=== PATIENT | female | born 1970 | race American Indian/Alaskan Native ===

== ENCOUNTER 2019-10-01 23:54 | Emergency (ER) | payer SELFPAY ==
[2019-10-02] MEDS ORDERED: ASPIRIN 325 MG TAB PO ONE (00:09)
[2019-10-02 00:45] LABS: Basophils # (Auto) 0.1 K/mm3 (0.0-0.1); Basophils % (Auto) 0.9 % (0.0-1.8); Eosinophils # (Auto) 0.1 K/mm3 (0.0-0.4); Eosinophils % (Auto) 1.5 % (0.0-4.3); Hematocrit 43.1 % (30.3-42.9); Hemoglobin 14.7 gm/dl (10.1-14.3); Lymphocytes # (Auto) 2.5 K/mm3 (1.2-5.4); Lymphocytes % (Auto) 39.7 % (13.4-35.0); Mean Corpuscular HGB Conc 34 % (30-34); Mean Corpuscular Volume 91 fl (79-97); Monocytes # (Auto) 0.4 K/mm3 (0.0-0.8); Monocytes % (Auto) 6.9 % (0.0-7.3); Platelet Count 379 K/mm3 (140-440); Red Blood Count 4.73 M/mm3 (3.65-5.03); Red Cell Distribution Width 15.7 % (13.2-15.2)
[2019-10-02 01:00] LABS: BUN/Creatinine Ratio 14; Blood Urea Nitrogen 14 mg/dL (7-17); Hemolysis Index 9
--- NOTE | 2019-10-02 01:36 | XRay Report ---
CHEST 2 VIEWS INDICATION / CLINICAL INFORMATION: Chest Pain. COMPARISON: None available. FINDINGS: SUPPORT DEVICES: None. HEART / MEDIASTINUM: The heart size and pulmonary vasculature are normal. The aorta is normal in claudia lucian. LUNGS / PLEURA: No significant pulmonary or pleural abnormality. No pneumothorax. ADDITIONAL FINDINGS: No significant additional findings. IMPRESSION: No acute findings. Signer Name: Ton Powell MD Signed: 10/02/2019 1:32 AM Workstation Name: [id number]
[2019-10-02] MEDS ORDERED: SODIUM CHLORIDE 0.9% 1000 ML 1,000 ML IV ONE (02:30)
--- NOTE | 2019-10-02 02:30 | Emergency Department Report ---
ED Abdominal Pain HPI - General Chief Complaint: Nausea/Vomiting/Diarrhea Stated Complaint: WEAK LEGS,NAUSEA,VOMITING,CHEST PAIN Time Seen by Provider: 10/02/19 02:20 Source: patient Mode of arrival: Wheelchair Limitations: No Limitations - History of Present Illness Initial Comments: 49-year-old female with history of gastric ulcers presents to ED with 3-week history abdominal pain, nausea and vomiting. Patient has been seen in the ED twice over the last 2 weeks for same. Patient states she cannot seem to keep her symptoms under control. States she cannot keep anything down. Patient states she is here visiting her daughter from out of town and will be returning home this week. Patient states she has not had an abdominal flareup in approxim ately 6 months. Patient does report marijuana use approximately 3-4 times per week. MD Complaint: abdominal pain -: week(s) (3) Location: diffuse Radiation: epigastric Migration to: no migration Severity: moderate Quality: aching Consistency: intermittent Improves With: nothing Worsens With: eating Associated Symptoms: nausea, vomiting. denies: diarrhea, fever - Related Data Previous Rx's Medication Instructions Recorded Last Taken Type Dicyclomine [Bentyl] 10 mg PO QID #20 capsule 09/20/19 Unknown Rx Omeprazole Magnesium [PriLOSEC Otc] 20 mg PO QDAY #20 tab 09/20/19 Unknown Rx Ondansetron [Zofran Odt] 4 mg PO Q8HR #30 tab.rapdis 09/20/19 Unknown Rx Dicyclomine [Bentyl] 10 mg PO QID PRN #30 capsule 09/24/19 Unknown Rx Dicyclomine [Bentyl] 20 mg PO QID PRN #20 tablet 10/02/19 Unknown Rx Famotidine [Pepcid] 40 mg PO QHS #30 tablet 10/02/19 Unknown Rx Promethazine [Phenergan TAB] 25 mg PO Q6HR PRN #20 tab 10/02/19 Unknown Rx Promethazine [Phenergan] 25 mg [place] Q6HR PRN #10 supp.rect 10/02/19 Unknown Rx Allergies Allergy/AdvReac Type Severity Reaction Status Date / Time No Known Allergies Allergy Verified 09/20/19 05:04 ED Review of Systems ROS: Stated complaint: WEAK LEGS,NAUSEA,VOMITING,CHEST PAIN Other details as noted in HPI Comment: All other systems reviewed and negative Constitutional: denies: chills, fever Gastrointestinal: abdominal pain, nausea, vomiting. denies: diarrhea ED Past Medical Hx - Past Medical History Previous Medical History?: Yes Hx Hypertension: Yes (no meds) Additional medical history: PUD - Surgical History Past Surgical History?: Yes Hx Appendectomy: Yes Additional Surgical History: tubal ligtion - Social History Smoking Status: Current Some Day Smoker Substance Use Type: Marijuana - Medications Home Medications: Home Medications Medication Instructions Recorded Confirmed Last Taken Type Dicyclomine [Bentyl] 10 mg PO QID #20 capsule 09/20/19 Unknown Rx Omeprazole Magnesium [PriLOSEC Otc] 20 mg PO QDAY #20 tab 09/20/19 Unknown Rx Ondansetron [Zofran Odt] 4 mg PO Q8HR #30 tab.rapdis 09/20/19 Unknown Rx Dicyclomine [Bentyl] 10 mg PO QID PRN #30 capsule 09/24/19 Unknown Rx Dicyclomine [Bentyl] 20 mg PO QID PRN #20 tablet 10/02/19 Unknown Rx Famotidine [Pepcid] 40 mg PO QHS #30 tablet 10/02/19 Unknown Rx Promethazine [Phenergan TAB] 25 mg PO Q6HR PRN #20 tab 10/02/19 Unknown Rx Promethazine [Phenergan] 25 mg [place] Q6HR PRN #10 supp.rect 10/02/19 Unknown Rx ED Physical Exam - General Limitations: No Limitations General appearance: alert, in no apparent distress, other (Appears frail) - Head Head exam: Present: atraumatic, normocephalic - Eye Eye exam: Present: normal appearance, EOMI - ENT ENT exam: Present: mucous membranes moist - Neck Neck exam: Present: normal inspection - Respiratory Respiratory exam: Present: normal lung sounds bilaterally. Absent: respiratory distress - Cardiovascular Cardiovascular Exam: Present: normal rhythm, tachycardia - GI/Abdominal GI/Abdominal exam: Present: soft, tenderness (Mild diffuse tenderness). Absent: distended - Extremities Exam Extremities exam: Present: normal inspection - Neurological Exam Neurological exam: Present: alert, oriented X3 - Psychiatric Psychiatric exam: Present: normal affect, normal mood - Skin Skin exam: Present: warm, dry, intact, normal color ED Course Vital Signs 10/02/19 00:05 Temperature 98.5 F Pulse Rate 107 H Respiratory 18 Rate Blood Pressure 146/83 O2 Sat by Pulse 100 Oximetry ED Medical Decision Making - Lab Data Result diagrams: 10/02/19 00:31 10/02/19 00:31 - Medical Decision Making 49-year-old female chronic abdominal pain presents to ED with nausea and vomiting. This is patient's third visit for same complaint in the last 2 weeks. Patient had a CT abdomen pelvis during her last visit. No need for repeat scan tonight. Vital signs are normal. Labs are unremarkable except for mild hypokalemia. Patient given IV fluids, Reglan, Benadryl, Pepcid. She is feeling much better at this time. Patient will be discharged home with prescriptions for outpatient GI follow-up. - Differential Diagnosis GERD, cannabinoid hyperemesis syndrome, gastroparesis Critical care attestation.: If time is entered above; I have spent that time in minutes in the direct care of this critically ill patient, excluding procedure time. ED Disposition Clinical Impression: Abdominal pain, Nausea and vomiting Disposition: TO HOME OR SELFCARE Is pt being admited?: No Condition: Stable Instructions: Acute Nausea and Vomiting (ED), Abdominal Pain (ED) Prescriptions: Famotidine [Pepcid] 40 mg PO QHS #30 tablet Dicyclomine [Bentyl] 20 mg PO QID PRN #20 tablet PRN Reason: abdominal pain Promethazine [Phenergan TAB] 25 mg PO Q6HR PRN #20 tab PRN Reason: Nausea Promethazine [Phenergan] 25 mg [place] Q6HR PRN #10 supp.rect PRN Reason: Nausea Referrals: PRIMARY CARE, [Primary Care Provider] - 3-5 Days [facility] [Provider Group] - 3-5 Days Time of Disposition: 03:47
[2019-10-02] MEDS ORDERED: FAMOTIDINE 20 MG/2 ML INJ IV ONE (02:31)
[2019-10-02] MEDS ORDERED: METOCLOPRAMIDE 10 MG/2 ML INJ IV ONE (02:31)
[2019-10-02] MEDS ORDERED: diphenhydrAMINE 50 MG/ML VIAL IV ONE (02:31)
[2019-10-02 06:53] VITALS: BP 132/74
== END 2019-10-02 03:15 | disposition home or self-care (01) ==
LOC: ED 23:54
DX: R10.84 Generalized abdominal pain (principal); R11.2 Nausea with vomiting, unspecified; I10 Essential (primary) hypertension; F17.200 Nicotine dependence, unspecified, uncomplicated; F12.10 Cannabis abuse, uncomplicated; Z98.51 Tubal ligation status; Z90.49 Acquired absence of other specified parts of digestive tract; Z79.899 Other long term (current) drug therapy
CPT/HCPCS: 36415; 71045; 80048; 84484; 84703; 85025; 93005; 96361; 96374; 96375; 99284; J1200; J2765; J7030